=== PATIENT | female | born 1985 | race Caucasian/White ===

== ENCOUNTER 2023-02-09 14:44 | Outpatient (CLI) | payer OTHER | END 2023-02-09 14:45 | disposition home or self-care (01) | LOC: CSHLAB 14:44 | PROVIDERS: ATTEND Obstetrics & Gynecology | DX: Z01.812 Encounter for preprocedural laboratory examination (principal); O02.1 Missed abortion | CPT/HCPCS: 84702; 85027; 86850; 86900; 86901 ==

== ENCOUNTER 2023-02-11 08:45 | Day surgery (SDC) | payer OTHER ==
[2023-02-09 15:17] VITALS: BMI 32.5
[2023-02-09 15:45] LABS: Hematocrit 38.8 % (34.9-44.5); Mean Corpuscular HGB CONC 33.5 g/dL (32.0-36.0); Mean Corpuscular Volume 92.6 fl (81.6-98.3); Mean Platelet Volume 11.6 fl (7.4-10.4); Platelet Count 231 10x3/uL (150-450); RBC Distribution Width 12.4 % (11.5-14.5); Red Blood Cell (RBC) Count 4.19 10x6/uL (3.90-5.03); White Blood Cell (WBC) Count 6.8 10x3/uL (3.5-10.5)
[2023-02-11] MEDS ORDERED: Misoprostol 200 MCG TAB ONE (09:25)
[2023-02-11] MEDS ORDERED: Methylergonovine 0.2 MG/ML VIAL ONE (09:25)
[2023-02-11] MEDS ORDERED: Ondansetron PF 4 MG/2 ML Vial ONE (09:33)
[2023-02-11] MEDS ORDERED: Dexamethasone 20 MG/5 ML VIAL ONE (09:33)
[2023-02-11] MEDS ORDERED: Ketorolac Tromethamine 30 MG/ML VIAL ONE (09:33)
[2023-02-11] MEDS ORDERED: Midazolam HCl 2 mg/2 ml Vial ONE (09:33)
[2023-02-11] MEDS ORDERED: fentaNYL 50 mcg/mL 1 mL Vial ONE (09:33)
[2023-02-11] MEDS ORDERED: PROPOFOL 20 ML ONE (09:33)
[2023-02-11] MEDS ORDERED: Dexmedetomidine 200 MCG/2 ML VIAL ONE (09:36)
[2023-02-11] MEDS ORDERED: CEFAZOLIN 2 GM VIAL ONE (10:10)
== END 2023-02-11 12:20 | disposition home or self-care (01) ==
LOC: CSHSDC 08:45
PROVIDERS: ATTEND Obstetrics & Gynecology
PROC: 10D17ZZ Extraction of Products of Conception, Retained, Via Natural or Artificial Opening (ICD-10-PCS; principal; 2023-02-11)
DX: O02.1 Missed abortion (principal); Z88.1 Allergy status to other antibiotic agents
CPT/HCPCS: 84702; 85027; 86850; 86900; 86901; 88305; 90384; 96372; J1100; J1885; J2210; J2250; J2405; J2704; J3010